=== PATIENT | female | born 2000 | race Caucasian/White ===

== ENCOUNTER 2022-03-13 17:33 | Observation (INO) ==
[2022-03-13] MEDS ORDERED: ONDANSETRON 4 MG OD TAB PO STA (18:13)
[2022-03-13] MEDS ORDERED: SODIUM CHLORIDE 0.9% 1000ML 1,000 ML IV SCH (19:15)
[2022-03-13 19:34] LABS: Basophils # (auto) 0.02 K/uL (0-0.2); Basophils % (auto) 0.2 %; Hematocrit (blood only) 33.8 % (34.1-44.9); Hemoglobin 11.6 g/dl (12.0-16.0); Immature Granulocytes # (auto) 0.06 K/uL (0.00-0.02); Immature Granulocytes % (auto) 0.5 %; Lymphocytes # (auto) 0.53 K/uL (1.2-3.4); Lymphocytes % (auto) 4.1 %; Mean Corpuscular Hemoglobin 28.4 pg (25.0-34.0); Mean Corpuscular Hgb Conc 34.3 g/dL (32.0-36.0); Mean Corpuscular Volume 82.6 fL (80.0-100.0); Mean Platelet Volume 10.7 fL (9.4-12.3); Monocytes # (auto) 1.13 K/uL (0.24-0.82); Monocytes % (auto) 8.7 %; Neutrophils # (auto) 11.23 K/uL (1.4-6.5); Neutrophils % (auto) 86.5 %; Platelet Count 261 K/uL (130-400); RDW Coefficient of Variation 12.7 % (11.5-14.5); RDW Standard Deviation 38.8 fL (36.4-46.3); Red Blood Count 4.09 M/uL (3.93-5.22); White Blood Count 12.97 K/ul (4.8-10.8)
[2022-03-13] MEDS ORDERED: SODIUM CHLORIDE 0.9% 1000ML 2,000 ML IV ONE (20:00)
[2022-03-13] MEDS ORDERED: KETOROLAC TROMETHAMINE 15 MG/ML VIAL IV ONE (20:00)
[2022-03-13] MEDS ORDERED: ACETAMINOPHEN 325 MG TAB PO STA (20:00)
[2022-03-13] MEDS ORDERED: ONDANSETRON INJ 2 MG/ML 2 ML VIAL IV STA (20:00)
[2022-03-13 20:01] LABS: Alanine Aminotransferase 9 U/L (7-52); Albumin Globulin Ratio 1.2 (0.9-2); Albumin Level 4.3 gm/dl (3.4-5.0); Alkaline Phosphatase 64 U/L (34-104); Anion Gap 11 (3-11); Aspartate Aminotransferase 15 U/L (13-39); BUN Creatinine Ratio 16.5 (10-20); Bilirubin,Total 1.1 mg/dl (0.2-1.0); Blood Urea Nitrogen 13 mg/dl (6-23); Calcium 9.8 mg/dl (8.5-10.1); Carbon Dioxide 22 mmol/L (21-32); Chloride 103 mmol/L (98-107); Est GFR (African American) 123.2 ml/min; Est GFR (Non-African American) 106.3 ml/min; Globulin 3.6 gm/dl (2.5-4.0); Glucose 98 mg/dl (70-99(Fasting)); Potassium 2.9 mmol/L (3.5-5.1); Sodium 136 mmol/L (136-145); Total Protein 7.9 gm/dl (6.0-8.3)
--- NOTE | 2022-03-13 20:03 | Emergency Department Note ---
Impression & Plan Sepsis, Pyelonephritis, Hypokalemia, Hypotension ED Provider Note NAME: JONAH FLEMING AGE: 21 SEX: F : 2000 ARRIVES VIA: Ambulance INFORMANT: Patient ED PROVIDER(S): Matt Rodas DO CHIEF COMPLAINT: weakness HPI: Patient is a 21-year-old female who presents to the ER not feeling well. Symptoms started last night with myalgias and arthralgias. She today patient has nausea and vomiting. Last menstrual period started today. No dysuria, urgency, or frequency. Does have some mild bilateral lower back pain after lifting several heavy boxes the other day. No headache or neck pain. No sore throat. Boyfriend is sick with same symptoms hours. She took Motrin earlier today. Denies any real pain but notes that her stomach feels very upset. ROS: See above HPI for pertinent positives & negatives. A total of 10 systems re viewed and were otherwise negative. PAST MEDICAL HISTORY:See Below PAST SURGICAL HISTORY:See Below FAMILY HISTORY:See Below SOCIAL HISTORY:See Below HOME MEDICATIONS:See Below ALLERGIES:See Below VITALS:See Below PHYSICAL EXAMINATION: GENERAL: Sitting up in bed, alert, well appearing, well nourished, no distress, non-toxic EYE EXAM: normal conjunctiva. OROPHARYNX: no exudate, no erythema, lips, buccal mucosa, and tongue normal and mucous membranes are moist NECK: supple, no nuchal rigidity, no adenopathy, non-tender LUNGS: Clear to auscultation. Normal chest wall mechanics HEART: tachy, S1 normal and S2 normal ABDOMEN: abdomen soft, non-tender, normo-active bowel sounds, no masses, no rebound or guarding. BACK: Back is symmetrical on inspection and there is no deformity, no midline tenderness, no CVA tenderness. UPPER EXTREMITIES: upper extremities are grossly normal. LOWER EXTREMITIES: No pitting edema. NEURO EXAM: Normal sensorium, cranial nerves II-XII grossly intact, normal speech, no gross weakness of arms, no gross weakness of legs. MEDICAL DECISION MAKING: Patient is a 19-year-old female that presents to the ER for fevers. Patient was found to be hypotensive with systolic pressures in the 90s, tachycardic and febrile. Labs show leukocytosis 13,000. Mild anemia 11.6. bmp with a hypokalemia 2.9. LFTs, bilirubin, and lipase is unremarkable. UA was contaminated but shows a likely UTI. Flu and covid neg. CT abdomen pelvis shows pyelonephritis. Patient was given 2 L of IV fluids and heart rate trended down and systolic pressure trended up to the 120s. Patient was discussed with the hospitalist admitted for further work-up. She was given IV Rocephin as well. Triage Nursing notes reviewed. Limited review of prior medical records performed Vital Signs: reviewed and remarkable for febrile, tachy, hypotension Differential diagnosis: Differential diagnosis includes etiologies such as sepsis, UTI, pneumonia, metabolic, electrolyte abnormalities, cardiac sources, intracerebral event, toxicologic, neurological, as well as others were entertained. ER treatment provided: See below Diagnostics interpreted by me: ECG: none Cardiac Monitoring: An order was placed for continuous cardiac monitoring. The monitor shows a rate of 122 with sinus rhythm. Laboratory studies: As stated above and show below. Imaging studies: See below Consultation(s): none Procedures: none Critical Care: I have personally spent 35 minutes of critical care time in the direct management of this patient. This includes bedside care, interpretation of diagnostic studies, and testing, discussion with consultants, patient, and family members, and other required patient management activities. This 35 minutes is in excess of all separately billable procedures. Past Med/Surg History Medical History (Updated 03/14/22 @ 00:58 by Matt Rodas DO) No significant past medical history Surgical History (Updated 03/14/22 @ 00:19 by Arlene Burns DO) History of wisdom tooth extraction Family History (Updated 03/14/22 @ 00:20 by Arlene Burns DO) Other No significant family history Social History (Updated 03/14/22 @ 00:20 by Arlene Burns DO) Smoking Status: Never smoker Hx Alcohol Use: No Hx Substance Use: No Feels Safe at Home: Yes Allergies Allergies Allergy/AdvReac Type Severity Reaction Status Date / Time No Known Allergies Allergy Verified 03/13/22 21:14 Home Meds Home Medications Medication Instructions Recorded Confirmed No Known Home Medications 03/13/22 03/13/22 Results & Data (ED) Vital Signs Vital Signs - 24 hr 03/13/22 18:08 03/13/22 20:28 03/13/22 22:00 Temperature 38 C H Temperature Source Oral Pulse Rate 136 H Pulse Rate [Right Finger] 103 H 91 H Pulse Rhythm Regular Pulse Rhythm [Right Finger] Regular Regular Pulse Strength [Right Finger] Normal Normal Respiratory Rate 16 18 18 Respiratory Effort / Characteristics Non-Labored Spontaneous Non-Labored Non-Labored Respiratory Depth Normal Normal Normal Respiratory Pattern Regular Regular Blood Pressure 97/58 L Blood Pressure [Right Arm] 98/65 L 122/58 L Blood Pressure Mean 71 Blood Pressure Mean [Right Arm] 76 79 Blood Pressure Position [Right Arm] Lying Lying Pulse Oximetry 98 97 97 Oxygen Delivery Method Room Air Room Air Room Air Sepsis Recent Fever Within 48 Hours Yes Sepsis New/Unexplained Change in Mental Status No Sepsis Action Taken by Nursing Physician Notified Laboratory Data Result diagrams: 03/13/22 19:20 03/13/22 19:20 Lab Results 03/13/22 03/13/22 03/13/22 Range/Units 19:14 19:20 19:20 WBC 12.97 H (4.8-10.8) K/ul RBC 4.09 (3.93-5.22) M/uL Hgb 11.6 L (12.0-16.0) g/dl Hct 33.8 L (34.1-44.9) % MCV 82.6 (80.0-100.0) fL MCH 28.4 (25.0-34.0) pg MCHC 34.3 (32.0-36.0) g/dL RDW Std Deviation 38.8 (36.4-46.3) fL RDW Coeff of Elfego 12.7 (11.5-14.5) % Plt Count 261 (130-400) K/uL MPV 10.7 (9.4-12.3) fL Immature Gran % (Auto) 0.5 % Neut % (Auto) 86.5 % Lymph % (Auto) 4.1 % [place] % (Auto) 8.7 % Eos % (Auto) 0.0 % Baso % (Auto) 0.2 % Neut # (Auto) 11.23 H (1.4-6.5) K/uL Lymph # (Auto) 0.53 L (1.2-3.4) K/uL [place] # (Auto) 1.13 H (0.24-0.82) K/uL Eos # (Auto) 0.00 (0-0.50) K/uL Baso # (Auto) 0.02 (0-0.2) K/uL Immature Gran # (Auto) 0.06 H (0.00-0.02) K/uL Sodium 136 (136-145) mmol/L Potassium 2.9 L (3.5-5.1) mmol/L Chloride 103 (98-107) mmol/L Carbon Dioxide 22 (21-32) mmol/L Anion Gap 11 (3-11) BUN 13 (6-23) mg/dl Creatinine 0.79 (0.6-1.2) mg/dl Est Cr Clr Drug Dosing Not Reportable Est GFR ( Amer) 123.2 ml/min Est GFR (Non-Af Amer) 106.3 ml/min BUN/Creatinine Ratio 16.5 (10-20) Glucose 98 (70-99(Fasting)) mg/dl Calcium 9.8 (8.5-10.1) mg/dl Total Bilirubin 1.1 H (0.2-1.0) mg/dl AST 15 (13-39) U/L ALT 9 (7-52) U/L Alkaline Phosphatase 64 (34-104) U/L Total Protein 7.9 (6.0-8.3) gm/dl Albumin 4.3 (3.4-5.0) gm/dl Globulin 3.6 (2.5-4.0) gm/dl Albumin/Globulin Ratio 1.2 (0.9-2) Lipase (11-82) U/L Urine Color Urine Appearance (Clear) Urine pH (4.5-7.5) Ur Specific [place] (1.000-1.030) Urine Protein (Negative) Urine Glucose (UA) (Negative) Urine Ketones (Negative) Urine Blood (Negative) Urine Nitrite (Negative) Urine Bilirubin (Negative) Urine Urobilinogen (Negative) Ur Leukocyte Esterase (Negative) Urine WBC (Auto) (0-5) /hpf Urine RBC (Auto) (0-4) /hpf U Hyaline Cast (Auto) (0-5) /lpf U Epithel Cells (Auto) (0-5) /lpf Urine Bacteria (Auto) (Negative) Urine Yeast SARS-CoV-2 (PCR) NEGATIVE (Negative) Influenza Type A (PCR) Negative (Neg) Influenza Type B (PCR) Negative (Neg) RSV (RT-PCR) Negative (Neg) 03/13/22 03/13/22 Range/Units 19:20 20:25 WBC (4.8-10.8) K/ul RBC (3.93-5.22) M/uL Hgb (12.0-16.0) g/dl Hct (34.1-44.9) % MCV (80.0-100.0) fL MCH (25.0-34.0) pg MCHC (32.0-36.0) g/dL RDW Std Deviation (36.4-46.3) fL RDW Coeff of [place]fego (11.5-14.5) % Plt Count (130-400) K/uL MPV (9.4-12.3) fL Immature Gran % (Auto) % Neut % (Auto) % Lymph % (Auto) % [place] % (Auto) % Eos % (Auto) % Baso % (Auto) % Neut # (Auto) (1.4-6.5) K/uL Lymph # (Auto) (1.2-3.4) K/uL [place] # (Auto) (0.24-0.82) K/uL Eos # (Auto) (0-0.50) K/uL Baso # (Auto) (0-0.2) K/uL Immature Gran # (Auto) (0.00-0.02) K/uL Sodium (136-145) mmol/L Potassium (3.5-5.1) mmol/L Chloride (98-107) mmol/L Carbon Dioxide (21-32) mmol/L Anion Gap (3-11) BUN (6-23) mg/dl Creatinine (0.6-1.2) mg/dl Est Cr Clr Drug Dosing Est GFR ( Amer) ml/min Est GFR (Non-Af Amer) ml/min BUN/Creatinine Ratio (10-20) Glucose (70-99(Fasting)) mg/dl Calcium (8.5-10.1) mg/dl Total Bilirubin (0.2-1.0) mg/dl AST (13-39) U/L ALT (7-52) U/L Alkaline Phosphatase (34-104) U/L Total Protein (6.0-8.3) gm/dl Albumin (3.4-5.0) gm/dl Globulin (2.5-4.0) gm/dl Albumin/Globulin Ratio (0.9-2) Lipase 5 L (11-82) U/L Urine Color Yellow Urine Appearance Turbid A (Clear) Urine pH 7.0 (4.5-7.5) Ur Specific [place] 1.020 (1.000-1.030) Urine Protein 3+ H (Negative) Urine Glucose (UA) Negative (Negative) Urine Ketones 3+ H (Negative) Urine Blood 3+ H (Negative) Urine Nitrite Positive A (Negative) Urine Bilirubin Negative (Negative) Urine Urobilinogen Negative (Negative) Ur Leukocyte Esterase 3+ H (Negative) Urine WBC (Auto) >30 H (0-5) /hpf Urine RBC (Auto) >30 H (0-4) /hpf U Hyaline Cast (Auto) 1-5 (0-5) /lpf U Epithel Cells (Auto) >30 H (0-5) /lpf Urine Bacteria (Auto) 2+ H (Negative) Urine Yeast Not Reportable SARS-CoV-2 (PCR) (Negative) Influenza Type A (PCR) (Neg) Influenza Type B (PCR) (Neg) RSV (RT-PCR) (Neg) Administered Medications Lactated Ringer's (Lr) 1,000 mls @ 125 mls/hr IV .Q8H CLEMENTE Stop: 03/14/22 16:11 Last Admin: 03/14/22 00:45 Dose: 125 mls/hr Documented By: KACY Discontinued Medications Acetaminophen (Acetaminophen 325 Mg Tab) 650 mg PO NOW STA Stop: 03/13/22 20:01 Last Admin: 03/13/22 20:16 Dose: 650 mg Documented By: JOANNE Sodium Chloride (Nss 1000ml) 1,000 mls @ 999 mls/hr IV .Q1H1M CLEMENTE Stop: 03/13/22 20:15 Last Admin: 03/13/22 20:17 Dose: Not Given Documented By: JOANNE Sodium Chloride (Nss 1000ml) 2,000 mls @ 999 mls/hr IV .Q2H1M ONE Stop: 03/13/22 22:00 Last Infusion: 03/13/22 22:55 Dose: 0 mls/hr Documented By: Admin: 03/13/22 20:17 Dose: 999 mls/hr Documented By: JOANNE Ceftriaxone Sodium (Rocephin) 2,000 mg in 70 mls @ 140 mls/hr IV NOW STA Stop: 03/13/22 21:44 Last Infusion: 03/13/22 22:55 Dose: 0 mls/hr Documented By: Admin: 03/13/22 21:59 Dose: 140 mls/hr Documented By: JOANNE Ioversol (Optiray 300 100ml) 83 ml IV ONCE ONE Stop: 03/13/22 20:55 Last Admin: 03/13/22 20:55 Dose: 83 ml Documented By: CYNTHIA Ketorolac Tromethamine (Ketorolac Tromethamine 15 Mg/Ml Vial) 15 mg IV NOW ONE Stop: 03/13/22 20:01 Last Admin: 03/13/22 20:16 Dose: 15 mg Documented By: JOANNE Ondansetron HCl (Ondansetron 4 Mg Od Tab) 4 mg PO NOW STA Stop: 03/13/22 18:14 Last Admin: 03/13/22 20:17 Dose: Not Given Documented By: JOANNE Ondansetron HCl (Ondansetron Inj 2 Mg/Ml 2 Ml Vial) 4 mg IV NOW STA Stop: 03/13/22 20:01 Last Admin: 03/13/22 20:17 Dose: 4 mg Documented By: JOANNE Potassium Chloride (Potassium Chloride Crtab 20 Meq Tabcr) 60 meq PO NOW STA Stop: 03/14/22 00:13 Last Admin: 03/14/22 00:42 Dose: 60 meq Documented By: KACY Imaging Data Radiologist's Impression: Abdomen/Pelvis CT 03/13/22 20:[address] WITH IV CONTRAST CT DOSE: 338.11 mGy.cm HISTORY: Acute abdominal pain with nausea and vomiting abd pain n/v TECHNIQUE: Multiaxial CT images of the abdomen and pelvis were performed following the IV administration of 83 cc of Optiray, A dose lowering technique was utilized adhering to the principles of ALARA. COMPARISON STUDY: Chest radiograph of same day FINDINGS: Clear lung bases. No pneumatosis or pneumoperitoneum. The imaged inferior cardiac chambers are unremarkable. Unremarkable spleen, pancreas, adrenal glands, gallbladder and liver. Patency of the hepatic and portal veins. Unremarkable right kidney. There is mild left-sided hydroureteronephrosis with striated nephrogram. Perinephric and periureteral inflammatory stranding is noted with urothelial thickening of the renal collecting system and ureter. No obstructing calculus or lesion. Moderate urinary bladder wall thickening with partial distention. Uterus and adnexa are unremarkable. Trace free pelvic fluid. Unremarkable aorta. No lymphadenopathy. No bowel obstruction or bowel wall thickening. Moderate fecal retention. Normal appendix. No acute fracture. IMPRESSION: 1. Findings suggestive of left-sided pyelonephritis with a left-sided ascending infection. 2. Bladder wall thickening suspicious for cystitis. 3. No bowel obstruction or bowel wall thickening. Normal appendix. ACT 112: Negative or not required by law. The above report was generated using voice recognition software. It may contain grammatical, syntax or spelling errors. Electronically signed by: Jd Diaz M.D. 03/13/2022 9:19 PM Chest X-Ray 03/13/22 20:03 XR chest 1V portable HISTORY: 21 years-old Female cough acute cough COMPARISON: None TECHNIQUE: Portable AP view of the chest FINDINGS: Cardiomediastinal and hilar silhouettes are within normal limits. No pneu mothorax, pleural effusion, airspace consolidation or overt pulmonary edema. Bones of the chest appear grossly intact. IMPRESSION: No acute process. ACT 112: Negative or not required by law. The above report was generated using voice recognition software. It may contain grammatical, syntax or spelling errors. Electronically signed by: Jd Diaz M.D. 03/13/2022 8:49 PM Discharge Plan Visit Data Chief Complaint: Illness Stated Complaint: NAUSEA, VOMITING, FEVER, COUGH ED Provider: Matt Rodas Discharge Problem: Sepsis, Pyelonephritis, Hypokalemia, Hypotension
[2022-03-13 20:07] LABS: Influenza A virus by PCR Negative (Neg); Influenza B virus by PCR Negative (Neg); RSV by PCR Negative (Neg); SARS CoV2 RNA(COVID-19) InHosp NEGATIVE (Negative)
[2022-03-13 20:46] LABS: Appearance Urine Turbid (Clear); Bacteria Urine Automated 2+ (Negative); Bilirubin Urine Negative (Negative); Blood Urine 3+ (Negative); Color Urine Yellow; Epithelial Cell Urine Auto >30 /lpf (0-5); Glucose Urine UA Negative (Negative); Ketones Urine 3+ (Negative); Leukocyte Esterase Urine 3+ (Negative); Nitrite Urine Positive (Negative); Protein Urine 3+ (Negative); RBC Urine Automated >30 /hpf (0-4); Urobilinogen Urine Negative (Negative); WBC Urine Automated >30 /hpf (0-5)
--- NOTE | 2022-03-13 20:50 | XRay Report ---
XR chest 1V portable HISTORY: 21 years-old Female cough acute cough COMPARISON: None TECHNIQUE: Portable AP view of the chest FINDINGS: Cardiomediastinal and hilar silhouettes are within normal limits. No pneumothorax, pleural effusion, airspace consolidation or overt pulmonary edema. Bones of the chest appear grossly intact. IMPRESSION: No acute process. ACT 112: Negative or not required by law. The above report was generated using voice recognition software. It may contain grammatical, syntax o r spelling errors. Electronically signed by: Jd Diaz M.D. 03/13/2022 8:49 PM
[2022-03-13] MEDS ORDERED: OPTIRAY 300 100mL IV ONE (20:54)
[2022-03-13] MEDS ORDERED: cefTRIAXone SODIUM 2,000 MG/70 ML BAG IV STA (21:15)
--- NOTE | 2022-03-13 21:21 | CT Scan Report ---
ABDOMEN AND PELVIS CT WITH IV CONTRAST CT DOSE: 338.11 mGy.cm HISTORY: Acute abdominal pain with nausea and vomiting abd pain n/v TECHNIQUE: Multiaxial CT images of the abdomen and pelvis were performed following the IV administrat ion of 83 cc of Optiray, A dose lowering technique was utilized adhering to the principles of ALARA. COMPARISON STUDY: Chest radiograph of same day FINDINGS: Clear lung bases. No pneumatosis or pneumoperitoneum. The imaged inferior cardiac chambers are unremarkable. Unremarkable spleen, pancreas, adrenal glands, gallbladder and liver. Patency of th e hepatic and portal veins. Unremarkable right kidney. There is mild left-sided hydroureteronephrosis with striated nephrogram. P erinephric and periureteral inflammatory stranding is noted with urothelial thickening of the renal c ollecting system and ureter. No obstructing calculus or lesion. Moderate urinary bladder wall thicken ing with partial distention. Uterus and adnexa are unremarkable. Trace free pelvic fluid. Unremarkabl e aorta. No lymphadenopathy. No bowel obstruction or bowel wall thickening. Moderate fecal retention. Normal appendix. No acute fracture. IMPRESSION: 1. Findings suggestive of left-sided pyelonephritis with a left-sided ascending infection. 2. Bladder wall thickening suspicious for cystitis. 3. No bowel obstruction or bowel wall thickening. Normal appendix. ACT 112: Negative or not required by law. The above report was generated using voice recognition software. It may contain grammatical, syntax o r spelling errors. Electronically signed by: Jd Diaz M.D. 03/13/2022 9:19 PM
--- NOTE | 2022-03-13 23:43 | History & Physical Report ---
Date of Service March 13, 2022 Assessment & Plan (1) Pyelonephritis: Plan: 21yo female with no significant past medical or surgical history presents with acute uncomplicated pyelonephritis. Patient meets sepsis criteria on arrival with Tm =38, HR of 136, WBC=12.97. Blood pressure presently 122/58 after IVF. She appears non-toxic. -Observation to medical -Urine culture -Urine -Ceftriaxone 1gm IV daily -Tylenol PRN pain/fever -Ibuprofen PRN pain/fever -Zofran PRN nausea (2) Hypokalemia: Plan: K=2.9 -Check Mg and replete as needed -KCl 60mEq po now -Repeat chemistry in AM F/E/N - LR at 125mL/hr x 2 liters, K repletion as above, Check Mg, Regular diet as tolerate Ppx - Low risk for DVT, encourage ambulation as tolerated Code - Full Dispo - Observation to medical History of Present Illness Chief Complaint: nausea Primary Care Provider: NO PCP Michelle Chawla is a 21yo female with no significant past medical history presenting with nausea and vomiting. She reports urinary frequency and urgency as well as dysuria for several days. She felt tired and achy yesterday. Today at 13:00 she developed severe nausea followed by 6-7 episodes of non-bloody/non-bilious vomiting. Fever to 101.2 prior to arrival. She also felt tingling in her hands and feet and thought that she may pass out. She tried to take the bus to [employer] but continued feeling ill so the solid waste truck driver called EMS. She denies chest pain, cough, SOB, abdominal pain, diarrhea or back pain. She does admit to increased stress over the last few days. She has been eating and drinking per usual until today. No additional complaints at this time. Upon arrival patient febrile at 38, tachycardic at 136bpm, BP 97/58. Nausea which improved with IV Zofran ER Course: Ceftriaxone 2gm, Zofran 4mg IV, NSS x 2L, Tylenol 650mg, Toradol 15mg IV Allergies Allergy/AdvReac Type Severity Reaction Status Date / Time No Known Allergies Allergy Verified 03/13/22 21:14 Home Medications Medication Instructions Recorded Confirmed Type No Known Home Medications 03/13/22 03/13/22 History Past Med/Surg History Medical History (Updated 03/14/22 @ 00:23 by Arlene Burns DO) No significant past medical history Surgical History (Updated 03/14/22 @ 00:19 by Arlene Burns DO) History of wisdom tooth extraction Family History (Updated 03/14/22 @ 00:20 by Arlene Burns DO) Other No significant family history Social History (Updated 03/14/22 @ 00:20 by Arlene Burns DO) Smoking Status: Never smoker Hx Alcohol Use: No Hx Substance Use: No Feels Safe at Home: Yes Review of Systems Review of Systems: All systems reviewed & are unremarkable except as noted in HPI & below Physical Exam Physical Exam: General: patient resting comfortably, NAD, non-toxic in appearance, AA&O x 4 Skin: warm, dry, intact, no rashes or lesions HEENT: NC/AT, PERRL, EOMI, anicteric sclera, conjunctiva without injection, external ear normal to inspection and nontender, nares patent, moist mucus membranes, dentition intact, no oropharyngeal lesions, neck supple, trachea midline, no LAD, no thyromegaly, no JVD Heart: +S1/S2, regular, no m/r/g Lungs: equal air entry bilaterally, no rales/rhonchi/wheezes Abd: +BS, soft, NT/ND, no masses/organomegaly/ascites, mild left CVA tenderness Ext: warm, 2+ pulses in UE/LE bilaterally, no clubbing/cyanosis or edema Neuro: nonfocal, patient AA&O x 4, speech intact, no facial droop, moving all extremities on command with equal strength 5/5 Results & Data Results & Data ([facility]) Vital Signs (Past 12 Hours) Vital Signs Temp Pulse Pulse Resp BP BP Pulse Ox 03/13/22 22:00 91 H 18 122/58 L 97 03/13/22 20:28 103 H 18 98/65 L 97 03/13/22 18:08 38 C H 136 H 16 97/58 L 98 O2 Del Method 03/13/22 22:00 Room Air 03/13/22 20:28 Room Air 03/13/22 18:08 Room Air Laboratory Results Laboratory Results WBC 12.97 K/ul (4.8-10.8) H 03/13/22 19:20 RBC 4.09 M/uL (3.93-5.22) 03/13/22 19:20 Hgb 11.6 g/dl (12.0-16.0) L 03/13/22 19:20 Hct 33.8 % (34.1-44.9) L 03/13/22 19:20 MCV 82.6 fL (80.0-100.0) 03/13/22 19: MCH 28.4 pg (25.0-34.0) 03/13/22: MCHC 34.3 g/dL (32.0-36.0) 03/13/22: RDW Std Deviation 38.8 fL (36.4-46.3) 03/13/22: RDW Coeff of Elfego 12.7 % (11.5-14.5) 03/13/22 19: Plt Count 261 K/uL (130-400) 03/13/22 19:20 MPV 10.7 fL (9.4-12.3) 03/13/22 19:20 Immature Gran % (Auto) 0.5 % 03/13/22 19:20 Neut % (Auto) 86.5 % 03/13/22 19:20 Lymph % (Auto) 4.1 % 03/13/22 19:20 Brule % (Auto) 8.7 % 03/13/22 19:20 Eos % (Auto) 0.0 % 03/13/22:20 Baso % (Auto) 0.2 % 03/13/22:20 Neut # (Auto) 11.23 K/uL (1.4-6.5) H 03/13/22 19:20 Lymph # (Auto) 0.53 K/uL (1.2-3.4) L 03/13/22 19:20 Brule # (Auto) 1.13 K/uL (0.24-0.82) H 03/13/22 19:20 Eos # (Auto) 0.00 K/uL (0-0.50) 03/13/22 19:20 Baso # (Auto) 0.02 K/uL (0-0.2) 03/13/22 19:20 Immature Gran # (Auto) 0.06 K/uL (0.00-0.02) H 03/13/22 19:20 Sodium 136 mmol/L (136-145) 03/13/22 19:20 Potassium 2.9 mmol/L (3.5-5.1) L 03/13/22 19:20 Chloride 103 mmol/L (98-107) 03/13/22 19:20 Carbon Dioxide 22 mmol/L (21-32) 03/13/22 19:20 Anion Gap 11 (3-11) 03/13/22 19:20 BUN 13 mg/dl (6-23) 03/13/22 19:20 Creatinine 0.79 mg/dl (0.6-1.2) 03/13/22 19:20 Est Cr Clr Drug Dosing Not Reportable 03/13/22 19:20 Est GFR ( Amer) 123.2 ml/min 03/13/22 19:20 Est GFR (Non-Af Amer) 106.3 ml/min 03/13/22 19:20 BUN/Creatinine Ratio 16.5 (10-20) 03/13/22 19:20 Glucose 98 mg/dl (70-99(Fasting)) 03/13/22 19:20 Calcium 9.8 mg/dl (8.5-10.1) 03/13/22 19:20 Total Bilirubin 1.1 mg/dl (0.2-1.0) H 03/13/22 19:20 AST 15 U/L (13-39) 03/13/22 19:20 ALT 9 U/L (7-52) 03/13/22 19:20 Alkaline Phosphatase 64 U/L (34-104) 03/13/22 19:20 Total Protein 7.9 gm/dl (6.0-8.3) 03/13/22 19:20 Albumin 4.3 gm/dl (3.4-5.0) 03/13/22 19:20 Globulin 3.6 gm/dl (2.5-4.0) 03/13/22 19:20 Albumin/Globulin Ratio 1.2 (0.9-2) 03/13/22 19:20 Lipase 5 U/L (11-82) L 03/13/22 19:20 Urine Color Yellow 03/13/22 20:25 Urine Appearance Turbid (Clear) A 03/13/22 20:25 Urine pH 7.0 (4.5-7.5) 03/13/22 20:25 Ur Specific [place] 1.020 (1.000-1.030) 03/13/22 20:25 Urine Protein 3+ (Negative) H 03/13/22 20:25 Urine Glucose (UA) Negative (Negative) 03/13/22 20:25 Urine Ketones 3+ (Negative) H 03/13/22 20:25 Urine Blood 3+ (Negative) H 03/13/22 20:25 Urine Nitrite Positive (Negative) A 03/13/22 20:25 Urine Bilirubin Negative (Negative) 03/13/22 20:25 Urine Urobilinogen Negative (Negative) 03/13/22 20:25 Ur Leukocyte Esterase 3+ (Negative) H 03/13/22 20:25 Urine WBC (Auto) >30 /hpf (0-5) H 03/13/22 20:25 Urine RBC (Auto) >30 /hpf (0-4) H 03/13/22 20:25 U Hyaline Cast (Auto) 1-5 /lpf (0-5) 03/13/22 20:25 U Epithel Cells (Auto) >30 /lpf (0-5) H 03/13/22 20:25 Urine Bacteria (Auto) 2+ (Negative) H 03/13/22 20:25 Urine Yeast Not Reportable 03/13/22 20:25 SARS-CoV-2 (PCR) NEGATIVE (Negative) 03/13/22 19:14 Influenza Type A (PCR) Negative (Neg) 03/13/22 19:14 Influenza Type B (PCR) Negative (Neg) 03/13/22 19:14 RSV (RT-PCR) Negative (Neg) 03/13/22 19:14 Impressions Abdomen/Pelvis CT 03/13/22 20:[address] WITH IV CONTRAST CT DOSE: 338.11 mGy.cm HISTORY: Acute abdominal pain with nausea and vomiting abd pain n/v TECHNIQUE: Multiaxial CT images of the abdomen and pelvis were performed following the IV administration of 83 cc of Optiray, A dose lowering technique was utilized adhering to the principles of ALARA. COMPARISON STUDY: Chest radiograph of same day FINDINGS: Clear lung bases. No pneumatosis or pneumoperitoneum. The imaged inferior cardiac chambers are unremarkable. Unremarkable spleen, pancreas, adrenal glands, gallbladder and liver. Patency of the hepatic and portal veins. Unremarkable right kidney. There is mild left-sided hydroureteronephrosis with striated nephrogram. Perinephric and periureteral inflammatory stranding is noted with urothelial thickening of the renal collecting system and ureter. No obstructing calculus or lesion. Moderate urinary bladder wall thickening with partial distention. Uterus and adnexa are unremarkable. Trace free pelvic fluid. Unremarkable aorta. No lymphadenopathy. No bowel obstruction or bowel wall thickening. Moderate fecal retention. Normal appendix. No acute fracture. IMPRESSION: 1. Findings suggestive of left-sided pyelonephritis with a left-sided ascending infection. 2. Bladder wall thickening suspicious for cystitis. 3. No bowel obstruction or bowel wall thickening. Normal appendix. ACT 112: Negative or not required by law. The above report was generated using voice recognition software. It may contain grammatical, syntax or spelling errors. Electronically signed by: Jd Diaz M.D. 03/13/2022 9:19 PM Chest X-Ray 03/13/22 20:03 XR chest 1V portable HISTORY: 21 years-old Female cough acute cough COMPARISON: None TECHNIQUE: Portable AP view of the chest FINDINGS: Cardiomediastinal and hilar silhouettes are within normal limits. No pneumothorax, pleural effusion, airspace consolidation or overt pulmonary edema. Bones of the chest appear grossly intact. IMPRESSION: No acute process. ACT 112: Negative or not required by law. The above report was generated using voice recognition software. It may contain grammatical, syntax or spelling errors. Electronically signed by: Jd Diaz M.D. 03/13/2022 8:49 PM PG Care Time/CCT Total # of Minutes Spent Total Time Spent with Patient: Total time spent is greater than 50% in coordination of care (as documented) at patient's floor/unit and/or counseling patient: Coding Level of Care Code INT OBSERVATION CARE 50M LVL 2 Diagnoses Pyelonephritis N12 Hypokalemia E87.6
[2022-03-14] MEDS ORDERED: DOCUSATE SODIUM 100 MG CAP PO PRN (00:12)
[2022-03-14] MEDS ORDERED: ONDANSETRON INJ 2 MG/ML 2 ML VIAL IV PRN (00:12)
[2022-03-14] MEDS ORDERED: POTASSIUM CHLORIDE CRTAB 20 MEQ TABCR PO STA (00:12)
[2022-03-14] MEDS ORDERED: IBUPROFEN 600 MG TAB PO PRN (00:12)
[2022-03-14] MEDS ORDERED: ACETAMINOPHEN 500 MG TAB PO PRN (00:12)
[2022-03-14] MEDS: LACTATED RINGER'S 1,000 ML IV SCH ×2 (00:45→09:27)
[2022-03-14 01:09] LABS: Magnesium 1.5 mg/dl (1.7-2.4)
[2022-03-14] MEDS ORDERED: ACETAMINOPHEN 1,000 MG/100 ML VIAL IV PRN (02:29)
[2022-03-14] MEDS ORDERED: PROMETHAZINE HCL 12.5 MG in SODIUM CHLORIDE 0.9% 50 ML IV PRN (02:29)
[2022-03-14 06:10] LABS: Hemoglobin 9.9 g/dl (12.0-16.0); Mean Corpuscular Volume 84.7 fL (80.0-100.0); Mean Platelet Volume 11.3 fL (9.4-12.3); Platelet Count 198 K/uL (130-400); RDW Standard Deviation 40.4 fL (36.4-46.3); Red Blood Count 3.54 M/uL (3.93-5.22); White Blood Count 9.88 K/ul (4.8-10.8)
[2022-03-14 06:29] LABS: BUN Creatinine Ratio 16.3 (10-20); Creatinine Clr Calc Pharmacy 114.1 ml/min; Est GFR (African American) 121.3 ml/min; Est GFR (Non-African American) 104.7 ml/min; Potassium 2.9 mmol/L (3.5-5.1)
[2022-03-14 06:53] LABS: Basophils # (auto) 0.02 K/uL (0-0.2); Basophils % (auto) 0.2 %; Immature Granulocytes # (auto) 0.07 K/uL (0.00-0.02); Immature Granulocytes % (auto) 0.7 %; Lymphocytes # (auto) 0.49 K/uL (1.2-3.4); Monocytes # (auto) 0.76 K/uL (0.24-0.82); Monocytes % (auto) 7.7 %; Neutrophils # (auto) 8.54 K/uL (1.4-6.5); Neutrophils % (auto) 86.4 %
[2022-03-14] MEDS ORDERED: POTASSIUM CHLORIDE 10 MEQ / 100ML WTR IV STA (08:30)
--- NOTE | 2022-03-14 08:34 | Hospitalist Progress Note ---
Date of Service March 14, 2022 Assessment & Plan (1) Pyelonephritis: Plan: 21yo female with no significant past medical or surgical history presents with acute uncomplicated pyelonephritis. Patient meets sepsis criteria on arrival with Tm =38, HR of 136, WBC=12.97. Blood pressure presently 122/58 after IVF. She appears non-toxic. -Observation to medical -Urine culture pending -Urine negative -Ceftriaxone 2gm IV daily as imaging evidence of ascending infection/pyelonephritis -Tylenol PRN pain/fever -Ibuprofen PRN pain/fever -Zofran PRN nausea (2) Hypokalemia: Plan: replete potassium and magnesium F/E/N - LR at 125mL/hr x 2 liters, K repletion as above, Check Mg, Regular diet as tolerate Ppx - Low risk for DVT, encourage ambulation as tolerated Code - Full Dispo - Observation to medical Admission and Anticipated Discharge Date Admission Date: March 13, 2022 Results & Data Results & Data ([facility]) Vital Signs (Past 12 Hours) Vital Signs Temp Pulse Pulse Resp BP BP Pulse Ox 03/14/22 07:15 98.4 F 88 20 116/70 99 03/14/22 06:45 91 H 16 105/48 L 98 03/14/22 06:00 91 H 16 105/48 L 98 03/14/22 04:30 99.0 F 101 H 18 107/52 L 98 03/14/22 01:20 99.3 F 127 H 20 117/65 100 03/13/22 22:00 91 H 18 122/58 L 97 O2 Del Method O2 Flow Rate 03/14/22 07:15 Room Air 03/14/22 06:45 Room Air 03/14/22 06:00 Room Air 03/14/22 04:30 Room Air 0 03/14/22 01:20 Room Air 03/13/22 22:00 Room Air PG Care Time/CCT Total # of Minutes Spent Total Time Spent with Patient: Total time spent is greater than 50% in coordination of care (as documented) at patient's floor/unit and/or counseling patient: Coding Diagnoses Pyelonephritis N12 Hypokalemia E87.6
[2022-03-14] MEDS ORDERED: POTASSIUM CHLORIDE CRTAB 20 MEQ TABCR PO SCH (09:00)
[2022-03-14] MEDS: MAGNESIUM SULFATE / D5W 1 GM/100 ML BAG IV SCH ×2 (09:27→11:28)
[2022-03-14] MEDS: POTASSIUM CHLORIDE / WTR 10 MEQ/100 ML PLCT IV SCH ×3 (09:54→15:39)
[2022-03-14] MEDS ORDERED: SODIUM CHLORIDE 0.9% 1000ML 1,000 ML IV SCH (10:15)
--- NOTE | 2022-03-14 19:14 | Discharge Summary ---
Date of Service March 14, 2022 Admission HPI Per Admitting Provider Michelle Chawla is a 21yo female with no significant past medical history presenting with nausea and vomiting. She reports urinary frequency and urgency as well as dysuria for several days. She felt tired and achy yesterday. Today at 13:00 she developed severe nausea followed by 6-7 episodes of non-bloody/non-bilious vomiting. Fever to 101.2 prior to arrival. She also felt tingling in her hands and feet and thought that she may pass out. She tried to take the bus to [employer] but continued feeling ill so the milk wagon driver called EMS. She denies chest pain, cough, SOB, abdominal pain, diarrhea or back pain. She does admit to increased stress over the last few days. She has been eating and drinking per usual until today. No additional complaints at this time. Upon arrival patient febrile at 38, tachycardic at 136bpm, BP 97/58. Nausea which improved with IV Zofran ER Course: Ceftriaxone 2gm, Zofran 4mg IV, NSS x 2L, Tylenol 650mg, Toradol 15mg IV Principal Diagnosis Pyelonephritis E. coli urinary tract infection present on admission Hypokalemia Discharge Exam The patient appeared stable Vital signs as documented. Abdominal exam reveals normal bowel sounds, soft non tender, no masses Extremities are nonedematous and both pedal pulses are normal. Neurologic exam is alert and oriented, no focal loss of strength or sensation Skin is without bruises or rashes Psychologically is without concerns for anxiety or depression. Discharge Data Allergies Allergy/AdvReac Type Severity Reaction Status Date / Time No Known Allergies Allergy Verified 03/13/22 21:14 Consultations 03/13/22 23:13 ED Decision to Admit Stat Ordered Studies 03/13/22 20:03 CT Abd and Pelvis [CT abd pelvis IV con only] Stat Hospital Course (1) Pyelonephritis: 21yo female with no significant past medical or surgical history presents with acute uncomplicated pyelonephritis. Patient meets sepsis criteria on arrival with Tm =38, HR of 136, WBC=12.97. Blood pressure presently 122/58 after IVF. She appears non-toxic. -Patient and her parents were counseled to 2 occasions during the stay they wish to go home they understand that the final sensitivities were not back from E. coli pyelonephritis she is discharged on cefdinir -Urine culture pending -Urine negative (2) Hypokalemia: replete potassium and magnesium Encouraged the patient to have electrolyte containing liquids such as Gatorade or Powerade Encouraged the patient to have close follow-up with [facility] including outpatient repeat blood work Total Time Total Time Spent Total Time Spent (In Minutes): Discharge 30 including 2 bedside visits Discharge Plan Discharge Items Patient Disposition: Home - Self-Care Reason For Visit: PYELONEPHRITIS, HYPOKALEMIA Discharge Diagnosis: pyelonephritis hypokalemia Condition on Discharge: Good Activity: Per Instructions section Activity Comment: Slowly increase activity Non-emergency contact: Primary Care Provider Call non-emergency contact if: your symptoms worsen and your pain is worsening Follow-up/Referrals: [facility] [Provider Group] Giuseppe Hernandez MD [Hospitalist] - PCP,NO [Primary Care Provider] - Diet: Regular Addtl Attending Provider Instructions: please flollow up with [facility] as soon as able' drink gatoraide or poweraide use antinausea mediciations is needed finish all antibiotics Pending Studies at Discharge: Yes (Urine culture sensitivity) Stand-Alone Forms: My MICMALI, Smoking Cessation Medications and DC Order Prescriptions: New cefdinir 300 mg capsule 300 mg PO BID 10 Days Qty: 20 0RF ondansetron HCl 4 mg tablet 4 mg PO Q8H PRN (Reason: nausea and vomiting) Qty: 10 0RF Discharge Orders: Discharge Order (Routine); Ordered 03/14/22 Ordered By: Giuseppe Hernandez Admission Data Admit Date/Time: 03/13/22 23:59 Attending Provider: Giuseppe Hernandez Admit Provider: Arlene Burns Primary Care Provider: PCP,ED Other Providers: Arlene Burns Other Interventions: Discharge Summary Assessment (RN) Last Done: 03/14/22 15:53 Coding Level of Care Code 18613 OBS Care - Discharge Diagnoses Pyelonephritis N12 Hypokalemia E87.6
[2022-03-14] MEDS ORDERED: cefTRIAXone SODIUM 1,000 MG in DEXTROSE 5% 50 ML IV SCH (21:00)
[2022-03-14] MEDS ORDERED: cefTRIAXone SODIUM 2,000 MG in DEXTROSE 5% 50 ML IV SCH (21:00)
== END 2022-03-14 15:57 | disposition home or self-care (01) ==
LOC: ED 17:33 → EDINP 23:42 → SUATTDRO 23:42 → INTOOBSV 23:42 → EDINP 03-14 06:45